=== PATIENT | male | born 1955 | race Two or more races ===

== ENCOUNTER 2022-08-02 11:17 | Inpatient (IN) | payer MEDICAID ==
[~2022-08-02] VITALS: Ht 177.8 cm; Wt 94.3 kg
[2022-08-02 14:36] LABS: BASOPHILS % 1.1 % (0.0-2.0); EOSINOPHILS % 0.2 % (0.0-5.0); HEMATOCRIT. 41.1 % (42.0-52.0); HEMOGLOBIN. 12.5 g/dL (14.0-18.0); LYMPHOCYTES % 28.4 % (20.0-50.0); MEAN CORPUSCULAR HEMOGLOBIN 22.5 pg (28.0-32.0); MEAN CORPUSCULAR VOLUME 73.9 fL (80.0-94.0); MEAN PLATELET VOLUME 9.3 fl (7.4-10.4); MONOCYTES % 8.4 % (2.0-8.0); NEUTROPHILS % 61.9 % (40.0-76.0); PLATELET 271 x1000/uL (130-400); RED BLOOD CELL COUNT 5.57 mill/uL (4.7-6.1); RED CELL DISTRIBUTION WIDTH 25.7 % (11.6-14.6)
[2022-08-02 14:45] LABS: CHLORIDE 101 mEq/L (98-107)
[2022-08-02 15:46] LABS: PLATELET ESTIMATE NORMAL
[2022-08-02] MEDS ORDERED: IOHEXOL-350 100 ML BOTTLE ONE (15:54)
[2022-08-02] MEDS ORDERED: AZITHROMYCIN 500MG/250ML 250 ML IV ONE (16:15)
[2022-08-02] MEDS ORDERED: FUROSEMIDE 40MG/4ML VIAL IVP ONE (16:15)
[2022-08-02] MEDS ORDERED: CEFTRIAXONE 1GM PREMIX 50 ML IV ONE (16:15)
[2022-08-02] MEDS ORDERED: ONDANSETRON HCL 4MG/2ML INJ IV PRN (16:45)
[2022-08-02] MEDS ORDERED: CEFTRIAXONE 1GM PREMIX 50 ML IV NR ×2 (16:45→17:45)
[2022-08-02] MEDS ORDERED: AZITHROMYCIN 500MG/250ML 250 ML IV NR ×2 (16:45→17:45)
[2022-08-02] MEDS ORDERED: ACETAMINOPHEN 650MG/20.3ML UDC GT PRN ×2 (16:45)
[2022-08-02] MEDS ORDERED: CLONIDINE 0.1MG TABLET PO PRN (16:45)
[2022-08-02] MEDS ORDERED: MAGNESIUM/ALUMINUM HYDROXIDE/SIMETHICONE 30ML UDC PO PRN (16:45)
[2022-08-02] MEDS ORDERED: IPRATROPIUM/ALBUTEROL 0.5-3(2.5)MG/3ML NEB HHN PRN (16:45)
[2022-08-02] MEDS ORDERED: HYDROCODONE/ACETAMINOPHEN 5/325MG TABLET PO PRN (16:45)
[2022-08-02] MEDS: FUROSEMIDE 40MG/4ML VIAL IV SCH (17:00)
[2022-08-02 17:26] LABS: TOTAL IRON BINDING CAPACITY 487 ug/dL (250-450)
[2022-08-02 17:59] LABS: FOLIC ACID (FOLATE) SERUM > 20.00 ng/mL (>5.38); VITAMIN B12 SERUM 816 pg/mL (211-911)
[2022-08-02 18:01] LABS: FERRITIN 55 ng/mL (22-322)
[2022-08-02 20:21] LABS: CREATINE KINASE MB FRACTION 2.7 ng/mL (0.5-3.6)
[2022-08-03] VITALS (10 sets, daily range): BP systolic 111–142; BP diastolic 88–113
[2022-08-03] MEDS: FUROSEMIDE 40MG/4ML VIAL IV SCH ×2 (08:42→17:27)
[2022-08-03] MEDS: PANTOPRAZOLE SODIUM 40 MG/VIAL IV SCH (08:43)
[2022-08-03] MEDS: AMLODIPINE 5MG TABLET PO SCH (08:44)
[2022-08-03] MEDS ORDERED: ENOXAPARIN 40MG/0.4ML SYR SUBCUT SCH (09:00)
[2022-08-03] MEDS ORDERED: ASPIRIN 81MG EC TABLET PO SCH (09:00)
[2022-08-03 10:57] LABS: BASOPHILS % 0.3 % (0.0-2.0); HEMATOCRIT. 39.6 % (42.0-52.0); HEMOGLOBIN. 12.1 g/dL (14.0-18.0); LYMPHOCYTES % 11.9 % (20.0-50.0); MEAN CORPUSCULAR HEMOGLOBIN 22.5 pg (28.0-32.0); MEAN CORPUSCULAR VOLUME 73.5 fL (80.0-94.0); MONOCYTES % 9.4 % (2.0-8.0); NEUTROPHILS % 78.4 % (40.0-76.0); PLATELET 253 x1000/uL (130-400); RED BLOOD CELL COUNT 5.39 mill/uL (4.7-6.1); RED CELL DISTRIBUTION WIDTH 25.1 % (11.6-14.6)
[2022-08-03] MEDS ORDERED: INFLUENZA VACCINE 05/PF 0.5 ML SYRINGE IM ONE (11:00)
[2022-08-03] MEDS ORDERED: PNEUMOCOCCAL 23-VAL P-SAC VAC 0.5 ML IM ONE (11:00)
[2022-08-03 11:19] LABS: CHLORIDE 102 mEq/L (98-107)
[2022-08-03 11:26] LABS: HDL CHOLESTEROL 44 mg/dL (40-59); LDL CHOLESTEROL 82 mg/dL (5-100)
[2022-08-03 11:56] LABS: HEPATITIS B SURFACE ANTIGEN NEGATIVE
[2022-08-03] MEDS ORDERED: IPRATROPIUM/ALBUTEROL 0.5-3(2.5)MG/3ML NEB HHN SCH (14:00)
[2022-08-03] MEDS: ALBUTEROL (0.083%) 2.5MG/3ML NEB HHN SCH (17:09)
[2022-08-03] MEDS: IPRATROPIUM BROMIDE (0.02%) 0.5MG/2.5ML NEB HHN SCH (17:09)
[2022-08-03] MEDS ORDERED: ALBUTEROL (0.083%) 2.5MG/3ML NEB HHN PRN (18:15)
[2022-08-03] MEDS ORDERED: IPRATROPIUM BROMIDE (0.02%) 0.5MG/2.5ML NEB HHN PRN (18:15)
[2022-08-03] MEDS ORDERED: NALOXONE HCL 0.4MG/ML VIAL IV PRN (19:00)
[2022-08-03] MEDS: CEFTRIAXONE 1,000 MG in DEXTROSE 5% WATER 50 ML IV SCH (21:03)
[2022-08-03] MEDS: AZITHROMYCIN 500MG in DEXTROSE 5% WATER 250ML IV SCH (21:03)
[2022-08-04] VITALS (12 sets, daily range): BP systolic 91–164; BP diastolic 72–100
[2022-08-04] MEDS: ALBUTEROL (0.083%) 2.5MG/3ML NEB HHN SCH ×2 (00:51→10:01)
[2022-08-04] MEDS: IPRATROPIUM BROMIDE (0.02%) 0.5MG/2.5ML NEB HHN SCH ×2 (00:52→10:02)
[2022-08-04] MEDS: ENOXAPARIN 80MG/0.8ML SYR SUBCUT SCH ×2 (01:18→15:01)
[2022-08-04] MEDS: GUAIFENESIN 200MG/10ML SUGAR FREE UDC PO PRN ×3 (02:25→22:44)
[2022-08-04 07:05] LABS: HEMATOCRIT. 36.7 % (42.0-52.0); HEMOGLOBIN. 11.5 g/dL (14.0-18.0); MEAN CORPUSCULAR HEMOGLOBIN 22.7 pg (28.0-32.0); MEAN CORPUSCULAR VOLUME 72.3 fL (80.0-94.0); PLATELET 201 x1000/uL (130-400); RED BLOOD CELL COUNT 5.08 mill/uL (4.7-6.1); RED CELL DISTRIBUTION WIDTH 25.6 % (11.6-14.6)
[2022-08-04 07:33] LABS: CHLORIDE 103 mEq/L (98-107)
[2022-08-04] MEDS: PANTOPRAZOLE SODIUM 40 MG/VIAL IV SCH (08:24)
[2022-08-04] MEDS: FUROSEMIDE 40MG/4ML VIAL IV SCH ×2 (08:24→19:49)
[2022-08-04] MEDS: AMLODIPINE 5MG TABLET PO SCH (08:25)
[2022-08-04 08:30] LABS: CLARITY URINE CLEAR (CLEAR); COLOR URINE DARK YELLOW (YELLOW); KETONES URINE TRACE (NEGATIVE); LEUKOCYTE ESTERASE URINE NEGATIVE (NEGATIVE); NITRITE URINE NEGATIVE (NEGATIVE); OCCULT BLOOD URINE NEGATIVE (NEGATIVE); PROTEIN URINE 1+ (NEGATIVE); SPECIFIC GRAVITY URINE 1.032 (1.005-1.030); UROBILINOGEN URINE 0.2 E.U./dL (0.2-1.0)
[2022-08-04 09:14] LABS: SODIUM URINE RANDOM < 5 mEq/L
[2022-08-04 10:30] LABS: PLATELET ESTIMATE NORMAL
[2022-08-04] MEDS: AZITHROMYCIN 500MG in DEXTROSE 5% WATER 250ML IV SCH (19:50)
[2022-08-04] MEDS: CEFTRIAXONE 1,000 MG in DEXTROSE 5% WATER 50 ML IV SCH (19:50)
[2022-08-04] MEDS: TAMSULOSIN HCL 0.4MG SR CAPSULE PO SCH (20:43)
[2022-08-05] VITALS (12 sets, daily range): BP systolic 108–132; BP diastolic 85–100
[2022-08-05] MEDS: ALBUTEROL (0.083%) 2.5MG/3ML NEB HHN SCH (01:05)
[2022-08-05] MEDS: ENOXAPARIN 80MG/0.8ML SYR SUBCUT SCH (01:05)
[2022-08-05] MEDS: IPRATROPIUM BROMIDE (0.02%) 0.5MG/2.5ML NEB HHN SCH (01:06)
[2022-08-05 06:01] LABS: HEMATOCRIT. 37.2 % (42.0-52.0); HEMOGLOBIN. 11.4 g/dL (14.0-18.0); MEAN CORPUSCULAR HEMOGLOBIN 22.9 pg (28.0-32.0); MEAN CORPUSCULAR VOLUME 74.3 fL (80.0-94.0); MEAN PLATELET VOLUME 9.4 fl (7.4-10.4); PLATELET 177 x1000/uL (130-400); RED CELL DISTRIBUTION WIDTH 25.2 % (11.6-14.6)
[2022-08-05] MEDS: GUAIFENESIN 200MG/10ML SUGAR FREE UDC PO PRN (06:08)
[2022-08-05 06:40] LABS: CHLORIDE 98 mEq/L (98-107)
[2022-08-05] MEDS: AMLODIPINE 5MG TABLET PO SCH (09:46)
[2022-08-05] MEDS: TAMSULOSIN HCL 0.4MG SR CAPSULE PO SCH (09:46)
[2022-08-05] MEDS: PANTOPRAZOLE SODIUM 40 MG/VIAL IV SCH (09:50)
[2022-08-05] MEDS: FUROSEMIDE 40MG/4ML VIAL IV SCH (09:50)
[2022-08-05] MEDS: AZITHROMYCIN 500MG in DEXTROSE 5% WATER 250ML IV SCH (18:43)
[2022-08-05] MEDS: CEFTRIAXONE 1,000 MG in DEXTROSE 5% WATER 50 ML IV SCH (18:45)
[2022-08-05 20:15] LABS: INR 1.3; PARTIAL THROMBOPLASTIN TIME 37.9 sec (23.4-31.0); PROTHROMBIN TIME 14.2 sec (9.6-11.0)
[2022-08-05 20:24] LABS: CREATINE KINASE MB FRACTION 3.7 ng/mL (0.5-3.6)
[2022-08-05] MEDS: CARVEDILOL 3.125 MG TABLET PO SCH (20:39)
[2022-08-06] VITALS (12 sets, daily range): BP systolic 120–155; BP diastolic 58–105
[2022-08-06] MEDS: ALBUTEROL (0.083%) 2.5MG/3ML NEB HHN SCH ×6 (00:29→21:06)
[2022-08-06] MEDS: IPRATROPIUM BROMIDE (0.02%) 0.5MG/2.5ML NEB HHN SCH ×6 (00:29→21:06)
[2022-08-06 01:39] LABS: CREATINE KINASE MB FRACTION 3.3 ng/mL (0.5-3.6)
[2022-08-06] MEDS: ENOXAPARIN 80MG/0.8ML SYR SUBCUT SCH (01:55)
[2022-08-06 06:30] LABS: HEMATOCRIT. 34.1 % (42.0-52.0); HEMOGLOBIN. 10.6 g/dL (14.0-18.0); MEAN CORPUSCULAR HEMOGLOBIN 22.6 pg (28.0-32.0); MEAN PLATELET VOLUME 9.1 fl (7.4-10.4); PLATELET 183 x1000/uL (130-400); RED BLOOD CELL COUNT 4.67 mill/uL (4.7-6.1); RED CELL DISTRIBUTION WIDTH 24.4 % (11.6-14.6)
[2022-08-06 07:13] LABS: CHLORIDE 104 mEq/L (98-107)
[2022-08-06 07:26] LABS: CREATINE KINASE 231 IU/L (39-308); CREATINE KINASE MB FRACTION 2.7 ng/mL (0.5-3.6)
[2022-08-06] MEDS ORDERED: FUROSEMIDE 40MG/4ML VIAL IV SCH (09:00)
[2022-08-06] MEDS ORDERED: LOSARTAN POTASSIUM 50 MG TABLET PO SCH (09:00)
[2022-08-06 09:32] LABS: PLATELET ESTIMATE NORMAL
[2022-08-06] MEDS: FAMOTIDINE 20MG/2ML VIAL IV SCH (10:49)
[2022-08-06] MEDS: CARVEDILOL 3.125 MG TABLET PO SCH ×2 (10:52→21:48)
[2022-08-06] MEDS: TAMSULOSIN HCL 0.4MG SR CAPSULE PO SCH (10:52)
[2022-08-06 11:47] LABS: PLATELET ESTIMATE NORMAL
[2022-08-06 17:10] LABS: INR 1.3; PROTHROMBIN TIME 13.5 sec (9.6-11.0)
[2022-08-06] MEDS ORDERED: AZITHROMYCIN 500 MG TABLET PO SCH (18:00)
[2022-08-06] MEDS: CEFTRIAXONE 1,000 MG in DEXTROSE 5% WATER 50 ML IV SCH (18:19)
[2022-08-07] VITALS (10 sets, daily range): BP systolic 117–135; BP diastolic 77–100
[2022-08-07 07:08] LABS: BASOPHILS % 0.6 % (0.0-2.0); HEMATOCRIT. 35.8 % (42.0-52.0); LYMPHOCYTES % 9.3 % (20.0-50.0); MEAN CORPUSCULAR HEMOGLOBIN 22.8 pg (28.0-32.0); MEAN CORPUSCULAR VOLUME 74.3 fL (80.0-94.0); MEAN PLATELET VOLUME 8.7 fl (7.4-10.4); MONOCYTES % 12.4 % (2.0-8.0); NEUTROPHILS % 75.7 % (40.0-76.0); PLATELET 188 x1000/uL (130-400); RED BLOOD CELL COUNT 4.82 mill/uL (4.7-6.1); RED CELL DISTRIBUTION WIDTH 25.7 % (11.6-14.6)
[2022-08-07 07:54] LABS: CHLORIDE 104 mEq/L (98-107)
[2022-08-07] MEDS: ALBUTEROL (0.083%) 2.5MG/3ML NEB HHN SCH ×3 (08:00→20:52)
[2022-08-07] MEDS: IPRATROPIUM BROMIDE (0.02%) 0.5MG/2.5ML NEB HHN SCH ×3 (08:00→20:52)
[2022-08-07] MEDS ORDERED: SODIUM BICARBONATE 4% (2.4MEQ) 5ML VIAL IV ONE (08:10)
[2022-08-07] MEDS ORDERED: LIDOCAINE HCL 1% 10 MG/ML 10ML VIAL ONE (08:11)
[2022-08-07] MEDS ORDERED: KCL 20MEQ/100ML PREMIX 100 ML IV SCH (10:00)
[2022-08-07] MEDS: FAMOTIDINE 20MG/2ML VIAL IV SCH (10:39)
[2022-08-07] MEDS: CARVEDILOL 3.125 MG TABLET PO SCH ×2 (10:40→21:00)
[2022-08-07] MEDS: TAMSULOSIN HCL 0.4MG SR CAPSULE PO SCH (10:40)
[2022-08-07] MEDS ORDERED: ALBUMIN HUMAN 25GM/100ML (25%) IV SCH (11:00)
[2022-08-07] MEDS ORDERED: LIDOCAINE HCL/PF 1% 10 MG/ML 5ML VIAL ONE (11:14)
[2022-08-07] MEDS ORDERED: HEPARIN 1000 UNITS/ML 10ML ONE (11:14)
[2022-08-07] MEDS ORDERED: DIPHENHYDRAMINE 50MG/ML VIAL ONE (11:14)
[2022-08-07] MEDS ORDERED: VERAPAMIL HCL 2.5 MG/1 ML 2ML VIAL IV ONE (11:14)
[2022-08-07] MEDS ORDERED: IODIXANOL 320MG/ML 100 ML BOTTLE IV ONE ×2 (11:14→14:50)
[2022-08-07] MEDS ORDERED: FENTANYL CITRATE/PF 50MCG/ML 2ML VIAL ONE (11:55)
[2022-08-07] MEDS ORDERED: MIDAZOLAM HCL 2 MG/2 ML VIAL ONE (11:55)
[2022-08-07] MEDS ORDERED: NITROGLYCERIN 50MCG/ML 10ML VIAL (CATH LAB) IV ONE (13:12)
[2022-08-07] MEDS ORDERED: NICARDIPINE 100MCG/ML 10ML VIAL (CATH LAB) IV ONE (13:12)
[2022-08-07] MEDS ORDERED: ATROPINE SULFATE 1MG/10ML SYR IV PRN (13:30)
[2022-08-07] MEDS ORDERED: ACETAMINOPHEN 325MG TABLET PO PRN (13:30)
[2022-08-07] MEDS ORDERED: HYDRALAZINE 20MG/ML VIAL ONE (14:41)
[2022-08-07] MEDS ORDERED: TAMS-11 PO ×2 (14:53→15:52)
[2022-08-07] MEDS ORDERED: LOSA50TA3 PO ×2 (14:54→15:52)
[2022-08-07] MEDS ORDERED: COR3 PO ×2 (14:54→15:52)
[2022-08-08] VITALS: BP 113/85
[2022-08-08] MEDS: ENOXAPARIN 80MG/0.8ML SYR SUBCUT SCH (02:15)
[2022-08-08 04:00] VITALS: BP 129/88
[2022-08-08 06:28] LABS: HEMATOCRIT. 36.1 % (42.0-52.0); HEMOGLOBIN. 11.1 g/dL (14.0-18.0); MEAN CORPUSCULAR HEMOGLOBIN 22.6 pg (28.0-32.0); MEAN CORPUSCULAR VOLUME 73.4 fL (80.0-94.0); MEAN PLATELET VOLUME 9.1 fl (7.4-10.4); PLATELET 196 x1000/uL (130-400); RED BLOOD CELL COUNT 4.93 mill/uL (4.7-6.1); RED CELL DISTRIBUTION WIDTH 25.6 % (11.6-14.6)
[2022-08-08 08:00] VITALS: BP 131/93
[2022-08-08] MEDS: FAMOTIDINE 20MG/2ML VIAL IV SCH (08:57)
[2022-08-08] MEDS: TAMSULOSIN HCL 0.4MG SR CAPSULE PO SCH (09:08)
[2022-08-08] MEDS: CARVEDILOL 3.125 MG TABLET PO SCH (09:08)
[2022-08-08] MEDS: ALBUTEROL (0.083%) 2.5MG/3ML NEB HHN SCH ×2 (09:12→16:13)
[2022-08-08] MEDS: IPRATROPIUM BROMIDE (0.02%) 0.5MG/2.5ML NEB HHN SCH ×2 (09:12→16:13)
[2022-08-08 11:16] VITALS: BP 128/82
[2022-08-08 11:36] LABS: PLATELET ESTIMATE NORMAL
[2022-08-08 12:00] VITALS: BP 128/86
[2022-08-09] MEDS ORDERED: FAMOTIDINE 20MG TABLET PO SCH (09:00)
== END 2022-08-08 16:35 | disposition home or self-care (01) | DRG 192 ==
LOC: ER 11:17 → MICUSO 15:28 → EDBEDREQTM 15:43 → EDBEDREQSVC 15:43 → EDBEDREQ 15:43 → SUPCPDRO 17:16 → 5EST 08-03 04:46
PROVIDERS: ADMIT Internal Medicine; ATTEND Internal Medicine
PROC: 5A09357 Assistance with Respiratory Ventilation, Less than 24 Consecutive Hours, Continuous Positive Airway Pressure (ICD-10-PCS; 2022-08-03)
PROC: 4A023N7 Measurement of Cardiac Sampling and Pressure, Left Heart, Percutaneous Approach (ICD-10-PCS; principal; 2022-08-07)
PROC: B211YZZ Fluoroscopy of Multiple Coronary Arteries using Other Contrast (ICD-10-PCS; 2022-08-07)
PROC: B215YZZ Fluoroscopy of Left Heart using Other Contrast (ICD-10-PCS; 2022-08-07)
PROC: 0W9G3ZZ Drainage of Peritoneal Cavity, Percutaneous Approach (ICD-10-PCS; 2022-08-07)
DX: I13.0 Hypertensive heart and chronic kidney disease with heart failure and stage 1 through stage 4 chronic kidney disease, or unspecified chronic kidney disease (principal); J96.00 Acute respiratory failure, unspecified whether with hypoxia or hypercapnia; N17.0 Acute kidney failure with tubular necrosis; C78.02 Secondary malignant neoplasm of left lung; J18.9 Pneumonia, unspecified organism; C78.01 Secondary malignant neoplasm of right lung; I21.A1 Myocardial infarction type 2; D63.1 Anemia in chronic kidney disease; I27.20 Pulmonary hypertension, unspecified; I50.23 Acute on chronic systolic (congestive) heart failure; I42.0 Dilated cardiomyopathy; R18.8 Other ascites; E11.22 Type 2 diabetes mellitus with diabetic chronic kidney disease; K74.60 Unspecified cirrhosis of liver; M10.9 Gout, unspecified; N18.31 Chronic kidney disease, stage 3a; C61 Malignant neoplasm of prostate; Z20.822 Contact with and (suspected) exposure to COVID-19; G89.29 Other chronic pain; I07.1 Rheumatic tricuspid insufficiency; Z79.82 Long term (current) use of aspirin; Z85.46 Personal history of malignant neoplasm of prostate; Z79.899 Other long term (current) drug therapy; Z82.3 Family history of stroke; Z85.118 Personal history of other malignant neoplasm of bronchus and lung; Z87.891 Personal history of nicotine dependence; Z99.2 Dependence on renal dialysis
CPT/HCPCS: 36415; 49083; 71045; 71275; 74176; 76700; 76770; 80048; 80053; 80061; 80076; 81003; 82248; 82550; 82553; 82607; 82728; 82746; 83010; 83540; 83550; 83880; 83935; 83986; 84145; 84153; 84300; 84484; 85025; 85044; 86803; 87340; 87426; 87804; 88108; 93005; 93306; 93458; 93970; 94640; 94660; 97162; 97166; 99285; C1769; C1887; C1893; C9113; C9803; J0360; J0456; J0696; J1200; J1644; J1650; J1940; J2250; J2405; J3010; J3480; J3490; J7060; P9047; Q9967; G0103